=== PATIENT | female | born 1970 | race Caucasian/White ===

== ENCOUNTER 2023-05-01 09:33 | Emergency (ER) | payer MEDICAID, OTHER ==
[~2023-05-01] VITALS: Ht 167.6 cm; Wt 71.7 kg
[2023-05-01] MEDS ORDERED: IBUPROFEN 600 MG TABLET ONE (09:43)
[2023-05-01] MEDS ORDERED: IBUPROFEN 600 MG TABLET PO ONE (09:45)
--- NOTE | 2023-05-01 09:46 | NUR ---
Xray in progress.
[2023-05-01] MEDS ORDERED: IBUP-1955 PO (10:11)
--- NOTE | 2023-05-01 10:25 | NUR ---
Provided pt w/ walker, education given, pt was ablke to return demonstration.
[2023-05-01 10:28] VITALS: BP 110/65
--- NOTE | 2023-05-01 10:29 | NUR ---
Patient discharged to home in stable condition. Written and verbal after care instructions given. Patient verbalizes understanding of instructions. Stressed follow up or return to ER for worsening s/s.
== END 2023-05-01 10:29 | disposition home or self-care (01) ==
LOC: ER 09:33
DX: S82.852A Displaced trimalleolar fracture of left lower leg, initial encounter for closed fracture (principal); Z79.1 Long term (current) use of non-steroidal anti-inflammatories (NSAID); W01.0XXA Fall on same level from slipping, tripping and stumbling without subsequent striking against object, initial encounter; Y93.89 Activity, other specified; Y92.89 Other specified places as the place of occurrence of the external cause; Y99.8 Other external cause status
CPT/HCPCS: 73610; A4663